=== PATIENT | female | born 1995 | race Caucasian/White ===

== ENCOUNTER 2018-12-10 01:21 | Inpatient (IN) | payer OTHER ==
[2018-12-10 01:56] LABS: Bilirubin Negative (Negative); Blood, Urine Negative (Negative); Clarity CLEAR (Clear); Glucose, Urine (Dipstick) Negative (Negative); Leukocyte Negative (Negative); Nitrite Negative (Negative); Protein, Urine (Dipstick) Negative (Neg-Trace); Specific Gravity, Urine 1.007 (1.002-1.036); Urobilinogen 0.2 mg/dL (0.2-1.0); pH, Urine 7.5 (5.0-9.0)
[2018-12-10] MEDS ORDERED: Acetaminophen 500 MG TAB ONE (02:53)
[2018-12-10 06:09] VITALS: BP 111/64; TEMP 98.7; BMI 21.9
[2018-12-10] MEDS ORDERED: Acetaminophen 500 MG TAB PO SCH (06:15)
[2018-12-10 06:17] LABS: Amnisure Test RUPTURE DETECTED (No Rupture)
[2018-12-10 06:18] LABS: Amnisure Internal Control QC ACCEPTABLE (ACCEPTABLE)
--- NOTE | 2018-12-10 06:39 | HP ---
PRIMARY OB: Ankur Shankar MD CHIEF COMPLAINT: Abdominal pain and pink discharge. HISTORY OF PRESENT ILLNESS: The patient is a 23-year-old, G1, P0 female with an intrauterine at 18 weeks and 5 days, who presented to the emergency room with abdominal pain and pink discharge. Since presentation, the abdominal pain seems to have dissipated on its own. During evaluation in the emergency room, the patient was noted to have a cervix that is thinning and funneling and patient was sent to Labor and Delivery for evaluation. Here in Labor and Delivery, the patient denies abdominal pain. She reports she has been having some pinkish discharge and has not noticed any change in her discharge. She denies any fever, fall, headache, chest pain, shortness of breath, nausea, vomiting, diarrhea, constipation, hip problems, knee problems, muscle weakness, any new rashes, urinary urgency. The patient denies any procedures her on her cervix such as a LEEP. PAST MEDICAL HISTORY: Negative. PAST SURGICAL HISTORY: Negative. ALLERGIES: SULFA DRUGS. MEDICATIONS: vitamins. OB LABS: She is rubella immune. HIV in the first trimester is nonreactive. Hepatitis B surface antigen is nonreactive in the first trimester. GC and chlamydia were negative in the first trimester. RPR and syphilis are nonreactive. Blood type is B positive. REVIEW OF SYSTEMS: Per HPI. Job ID: [id number]
[2018-12-10] MEDS ORDERED: Azithromycin 250 MG TAB PO SCH (06:45)
[2018-12-10] MEDS: Lactated Ringer's 1,000 ML IV SCH ×3 (07:04→21:37)
--- NOTE | 2018-12-10 07:11 | HP ---
PRIMARY PHOTOGRAPHIC SPOTTER: Dr. Ankur Shankar. CHIEF COMPLAINT: Abdominal pains and pink discharge. HISTORY OF PRESENT ILLNESS: The patient is a 23-year-old, G1, P0 female with an intrauterine at 18 weeks and 5 days, who presents to the emergency room this morning with complaints of abdominal pains, which started yesterday and pink discharge. On evaluation, the patient was noted to have funneling cervix by ultrasound and was transferred to and for evaluation. Here upon arrival, the patient reports that she is not having any more abdominal pains. She also reports that she has not noticed any change in her discharge or leaking of fluid. She confirmed this is her first and that she has not had any cervical procedures. The patient denies any recent illness, fever, fall, headache, chest pain, shortness of breath, nausea, vomiting, diarrhea, constipation, hip problems, knee problems, muscle weakness, new rashes, vaginal bleeding, urinary urgency. PAST MEDICAL HISTORY: Negative. PAST SURGICAL HISTORY: Negative. ALLERGIES: SULFA. MEDICATIONS: vitamins. SOCIAL HISTORY: Denies drug, alcohol tobacco use. OB LABS: She is rubella immune. RPR is nonreactive in the first trimester. Hepatitis B surface antigen is nonreactive in the first trimester. HIV is nonreactive in the first trimester. GC and chlamydia negative. Blood type is B positive. REVIEW OF SYSTEMS: Per HPI. PHYSICAL EXAMINATION: VITAL SIGNS: Blood pressure is 111/64, heart rate of 105, respiratory rate 16, saturating 98% on room air, temperature 98.2. GENERAL: She appears to be in no acute distress. She is alert, oriented, cooperative, and pleasant to interact with. HEAD: Normocephalic, atraumatic. LUNGS: Clear to auscultation bilaterally. HEART: Has regular rate and rhythm. ABDOMEN: Soft. She does have a little bit of tenderness in the lower abdomen on palpation. EXTREMITIES: Nontender, nonedematous. CERVIX: On her perineum, she has some white mucousy discharge at the introitus and on the perineum, she has a copious white watery discharge in her vaginal canal. Once removed, the patient is noted to have a visibly closed cervix. VPIII and AmniSure were collected at the time of evaluation. On digital exam, the patient has a cervix that has a dilated os, fingertip to 1 cm with clearly more dilated internal cervical os as it was not easily palpable. heart tones are in the 150s, report is not available yet, but the cervix definitely appears funneled with one view showing possible hourglassing of membranes. Urinalysis is negative for leukocyte esterase, nitrites, bacteria, blood or ketones. AmniSure reports rupture detected, VPIII is pending. She did have a VPIII in the ER, VPIII negative for Trichomonas, Gardnerella or Charity. CBC is also pending. ASSESSMENT AND PLAN: The patient is a 23-year-old female with an intrauterine at 18 weeks and 5 days, who appears to have rupture of membranes and incompetent cervix. Her uterine contractions have spontaneously resolved and may or may not have been in labor or earlier. Plan at this time is to start her on antibiotics of ampicillin and erythromycin and observe her for the next 24 hours. We may consider repeating her AmniSure test tomorrow to confirm rupture of membranes as she did not have any pulling with Valsalva and seems to have normal fluid levels on ultrasound. Her primary OB Dr. Miguel Shankar will be notified. Until we can either refute this test and confirm that she is not ruptured and consider a cervical cerclage in that scenario with the evidence of rupture of membranes, a cervical cerclage is not indicated at this time. Job ID: [id number]
[2018-12-10] MEDS: Ampicillin 2 GM in Sodium Chloride 0.9% 100 ML IVPB SCH ×3 (07:16→21:36)
--- NOTE | 2018-12-10 07:42 | ULT ---
PRELIMINARY REPORT: US After First Trimester, Transabdominal EXAM DATE/TIME: 12/10/2018 3:17 AM CLINICAL HISTORY: 23 years old, female; Pain and signs and symptoms; Lmp or gestational age (in weeks): 12w0d; Antepartum complications; Other: [place] discharge; complicated by abdominal or pelvic pain; Lower; Second trimester; ; Patient HX: Midline pelvic pain, pink discharge TECHNIQUE: Imaging protocol: Real-time transabdominal obstetrical ultrasound of the maternal pelvis and a second or third trimester with image documentation. COMPARISON: No relevant prior studies available. FINDINGS: Single living fetus in cephalic position. Anterior placenta. No placenta previa or other visible placental abnormality on the provided images. Amniotic fluid volume within normal limits. Cervical length was estimated with transabdominal scanning. The closed portion of the cervix appears shortened, measuring approximately 1.5 cm in length. There appears to be funneling of the internal os, diameter of fluid measures up to about 15 mm. As clinically needed, endovaginal scanning could more accurately evaluate the cervix, as clinically directed. BPD: , 4.0 cm. , 18 weeks, 1 day HC: , 14.5 cm. , 17 weeks, 5 days AC: , 12.3 cm. , 18 weeks, 0 days FL: , 2.7 cm. , 18 weeks, 1 day Composite age: 18 weeks, 0 days. Estimated weight: 219 grams. heart activity documented by the technologist, 158 bpm. Detailed/complete evaluation of anatomy was not performed at this time. If not already performed, subsequent complete evaluation of anatomy later in recommended, as clinically appropriate. No visible maternal adnexal abnormality. The urinary bladder was not completely evaluated/imaged at this time. IMPRESSION: 1. Single living fetus, composite age: 18 weeks, 0 days. 2. Significantly shortened cervical length, with funneling of the internal os, see above details. 3. Anterior placenta. 4. No visible placental abnormality on the provided images. 5. Normal amniotic fluid volume. 6. Other details discussed above. Thank you for allowing us to participate in the care of your patient. Dictated and Authenticated by: Steven Nolasco MD 12/10/2018 4:21 AM Central Time ([place] & [place]) FINAL REPORT: OBSTETRIC SONOGRAM: 12/10/2018 performed on emergency basis at 0319 hours. HISTORY: Second trimester gestation. Pelvic pain. FINDINGS: Agree with the preliminary report by Dr. Nolasco from [facility]. Single intrauterine gestation with estimated gestational age based on today's sonogram of 18 weeks 0 days. Shortening of the cervix with funneling of the internal os. Code QA Transcribed Date/Time: 12/10/2018 8:12 AM
[2018-12-10 07:58] LABS: Hemoglobin 11.8 g/dL (12.0-16.0); Mean Corpuscular HGB CONC 34.9 g/dL (32.0-36.0); Mean Corpuscular Hemoglobin 30.6 pg (27.0-31.0); Mean Corpuscular Volume 87.7 fL (78.0-98.0); Mean Platelet Volume 7.6 fL (7.4-10.4); Platelet Count 316 thou/uL (130-400); RBC Distribution Width 11.1 % (11.5-14.5); Red Blood Cell (RBC) Count 3.85 mill/uL (4.20-5.40); White Blood Cell (WBC) Count 19.6 thou/uL (4.8-10.8)
[2018-12-10 08:11] LABS: Band 8 % (5-11); Lymphocytes 7 % (21-51); MDiff Complete? YES; Monocytes 3 % (0-10); Neutrophil 82 % (42-75); Platelet Morphology Comment Appears Adequate; Polychromasia SLIGHT = 2-3 cells (100X) (0-2/hpf); Vacuoles SLIGHT
[2018-12-10] MEDS: Prenatal Vitamin 1 TAB PO SCH (08:59)
[2018-12-10] MEDS: Lactinex Tablet PO SCH (08:59)
[2018-12-10] MEDS ORDERED: metroNIDAZOLE 500 MG TAB PO SCH (09:00)
[2018-12-10] MEDS ORDERED: Erythromycin 250 MG in Sodium Chloride 0.9% 250 ML 250 ML IVPB SCH (12:00)
[2018-12-10] MEDS ORDERED: Butorphanol Tartrate 1 MG/ML VIAL SLOW IVP PRN ×2 (14:19→16:25)
--- NOTE | 2018-12-10 14:55 | PDOC.EVN ---
Event Note - Event Note Event Note: Called by Labor RN, big gush of fluid seen. Admitted this AM by Dr. Maki for Dr. Shankar. 23 yo WF G1 at 18 5/7 weeks with +amnisure and thinning cervix. Will continue ABX for latency, otherwise expectantly manage. Will deliver for chorioamnionitis, demise or spontaneous labor.
--- NOTE | 2018-12-10 16:31 | PDOC.EVN ---
Event Note - Event Note Event Note: CTSP for c/o "pressure". SSE shows vtx. SVE demonstrated cervix completely dilated. Expect delivery soon.
[2018-12-10] MEDS ORDERED: Misoprostol 100 MCG TAB ONE (17:20)
[2018-12-10] MEDS ORDERED: Misoprostol 200 MCG TAB ONE (17:20)
--- NOTE | 2018-12-10 18:07 | PDOC.OPDEL ---
OB Operative/Delivery Note Delivery Dr/Surgeon: Raad Pre-Delivery Diagnosis: active labor (Previable labor at 18 weeks gestation), other Procedure/Post Delivery Dx: spontaneous vaginal delivery Weeks gestation: 18 - Additional Findings/Plan Placenta delivered: spontaneous Repaired Obstetrical Laceration: none Estimated blood loss: 150 ml Post delivery plan: routine recovery
[2018-12-10] MEDS ORDERED: Acetaminophen 500 MG TAB PO PRN (20:08)
[2018-12-10] MEDS ORDERED: Ibuprofen 800 MG TAB PO PRN (20:08)
[2018-12-11] MEDS: Ampicillin 2 GM in Sodium Chloride 0.9% 100 ML IVPB SCH ×2 (03:00→09:26)
[2018-12-11 08:24] LABS: #Eosinphils 0.1 thou/uL (0.0-0.7); #Lymphocytes 1.9 thou/uL (1.20-3.40); #Neutrophils 11.1 thou/uL (1.40-6.50); %Basophils 0.1 % (0.0-1.0); %Eosinophils 0.5 % (0.0-10.0); %Lymphocytes 13.5 % (21.0-51.0); %Monocytes 6.9 % (0.0-10.0); Hemoglobin 9.8 g/dL (12.0-16.0); Mean Corpuscular HGB CONC 33.8 g/dL (32.0-36.0); Mean Corpuscular Hemoglobin 30.8 pg (27.0-31.0); Mean Platelet Volume 7.7 fL (7.4-10.4); Platelet Count 231 thou/uL (130-400); RBC Distribution Width 11.3 % (11.5-14.5); Red Blood Cell (RBC) Count 3.18 mill/uL (4.20-5.40); White Blood Cell (WBC) Count 14.1 thou/uL (4.8-10.8)
[2018-12-11] MEDS ORDERED: Azithromycin 250 MG TAB PO SCH (09:00)
[2018-12-11] MEDS: Prenatal Vitamin 1 TAB PO SCH (09:47)
[2018-12-11] MEDS: Lactinex Tablet PO SCH (09:48)
--- NOTE | 2018-12-11 11:38 | PDOC.PP ---
Post Progress Note Post Day #: 1 Subjective: Doing well. Feeling some back stiffness but otherwise pain better. Last cramping was last night. Bleeding normal. Grieving normally. PO intake tolerated: yes Flatus: yes Ambulation: yes Weight Weight 116 lb - Physical Examination General: NAD Cardiovascular: no m/r/g, RRR Respiratory: clear to auscultation bilaterally, non-labored breathing Abdominal: + bowel sounds, lochia, no distention, appropriately TTP Result Diagrams: 12/11/18 08:16 (1) demise Code(s): [id number] - Status: Acute (2) Grief associated with loss of fetus Code(s): F43.21 - ADJUSTMENT DISORDER WITH DEPRESSED MOOD Status: Acute - Assessment/Plan Doing well PP day #1. WBC decreasing. 19 --> 14 Ready for D/C home F/U in 2 weeks with me
== END 2018-12-11 12:25 | disposition home or self-care (01) | DRG 805 ==
LOC: ERS 01:21 → OBSVTOIN 03:45 → L&D 03:45
PROVIDERS: ADMIT Obstetrics & Gynecology; ATTEND Obstetrics & Gynecology
PROC: 10E0XZZ Delivery of Products of Conception, External Approach (ICD-10-PCS; principal; 2018-12-10)
DX: O60.12X0 Preterm labor second trimester with preterm delivery second trimester, not applicable or unspecified (principal); O34.32 Maternal care for cervical incompetence, second trimester; Z37.1 Single stillbirth; Z3A.18 18 weeks gestation of pregnancy; F43.21 Adjustment disorder with depressed mood; O99.344 Other mental disorders complicating childbirth; O02.1 Missed abortion
CPT/HCPCS: 36415; 76856; 81003; 84112; 85025; 87070; 87086; 87205; 87480; 87510; 87660; 93976; 96360; J0290; J0595; J3490

== ENCOUNTER 2019-05-28 10:43 | Observation (INO) | payer OTHER ==
[~2019-05-28 10:43] MED LIST: PROPOFOL 200 MG/20 ML VIAL ONE; Succinylcholine Chloride 20 MG/ML 10 ml SYRINGE FS ONE
[2019-05-28 11:04] VITALS: BMI 21.5
[2019-05-28 12:05] LABS: Amnisure Internal Control QC ACCEPTABLE (ACCEPTABLE); Amnisure Test No Membranes Rupture (No Rupture)
[2019-05-28 12:39] LABS: Bilirubin Negative (Negative); Blood, Urine Negative (Negative); Clarity Clear (Clear); Glucose, Urine (Dipstick) Normal (Negative); Leukocyte Negative Leu/uL (Negative); Nitrite Negative (Negative); Protein, Urine (Dipstick) Negative (Neg-Trace); RBC/HPF 0-3 HPF (0-3); Squamous Epithelial None Seen HPF (0-3); Urobilinogen Normal mg/dL (Less than 2); WBC/HPF 0-3 HPF (0-3)
[2019-05-28 12:40] LABS: Bacteria/HPF 1+ HPF (None Seen)
--- NOTE | 2019-05-28 14:42 | ULT ---
LIMITED OB ULTRASOUND TO EVALUATE THE CERVIX: INDICATION: Patient with a history of incompetent cervix. Assess cervical length. Currently approximately 19 we eks gestation according to the technologist. FINDINGS: There is dilatation of the internal os with funneling of amniotic fluid into the cervical canal. The fetus is in vertex position. The closed portion of the cervical canal is only measured at 1.[address] Maki made aware of these findings by the technologist. CODE CR POS: FAB
--- NOTE | 2019-05-28 16:27 | HP ---
PRIMARY OB: Ankur Shankar MD CHIEF COMPLAINT: Vaginal discharge. HISTORY OF PRESENT ILLNESS: The patient is a 23-year-old G2, P0 female with an intrauterine at 19 weeks and 4 days, presenting with a vaginal discharge x1 day. The patient has a history of delivery at 18 to 19 weeks last year. The belief at that time was that she had gone into labor due to infection. The patient has been placed on IM progesterone with earlier in this . The patient denies uterine contractions. She denies vaginal bleeding. She denies leakage of fluid. She denies urinary urgency or frequency. She denies any recent fever, cough, fall, chest pain, shortness of breath, nausea, vomiting, diarrhea, constipation, hip problems, knee problems, or muscle weakness. The patient describes as discharge is clear and gummy. PAST MEDICAL HISTORY: Negative. PAST SURGICAL HISTORY: Negative. ALLERGIES: SULFA DRUGS. MEDICATIONS: 1. vitamins. 2. IM progesterone shots. SOCIAL HISTORY: Denies drug, alcohol, or tobacco use. REVIEW OF SYSTEMS: Per HPI. PHYSICAL EXAMINATION: VITAL SIGNS: Blood pressure is 125/84, respiratory rate 17, temperature 99.4, pulse of 101, and saturating 100%. GENERAL: She appears to be in no acute distress. She is alert, oriented, cooperative, and pleasant to interact with. HEAD: Normocephalic and atraumatic. LUNGS: Clear to auscultation bilaterally. HEART: Has regular rate and rhythm. ABDOMEN: Gravid, soft, and nontender. EXTREMITIES: Nontender and nonedematous. : Vulva is without masses, lesions, or erythema. Vagina is moist with some discharge. Cervix is visibly closed with mucus present at the external os. On digital exam, cervix feels fairly long and medium soft with closed outer os. Heart tones are in the 140s. Bedside ultrasound shows a cervical length of 0.91 cm with funneling. VP3 is negative for bacterial vaginosis, Gardnerella, Trichomonas, or Charity. Urinalysis is negative for bacteria, blood, nitrites, leukocyte esterase, white blood cells. She does have 1+ bacteria for clean-catch. AmniSure test is negative. ASSESSMENT AND PLAN: The patient is a 23-year-old female with an intrauterine at 19 weeks and 4 days, coming with an incompetent cervix. The cervix is very dynamic with beaking anywhere from 1.7 to 0.9 cm. On digital exam, the cervical body itself feels to be pretty intact. We did discuss with the patient the option of having a cerclage placed. I have discussed these findings with Dr. Shankar. We will be placing a cerclage here this afternoon with Mersilene tape. The patient was given a fair lengthy discussion of the risks and benefits of a cervical cerclage, including the risk of rupture of membranes, labor, bleeding, infection, failure to extend the as desired. The patient has expressed understanding and desires to proceed. The patient has accepted and provided informed written consent for placement of cerclage. The patient will be admitted to the hospital until this procedure can be done and then observed overnight. Again, I have updated Dr. Shankar with our findings. We will be looking into changing her progesterone from IM weekly progesterone to vaginal progesterone daily as this formulation has been shown in some settings to be more effective. Pt will be discharged on indomethacin. Job ID: [id number] MTDD
[2019-05-28] MEDS ORDERED: Lidocaine 1% (PF) 30 ML VIAL ONE (18:11)
[2019-05-28] MEDS ORDERED: Fentanyl 100 MCG/2 ML VIAL ONE (18:33)
[2019-05-28] MEDS ORDERED: Silver Nitrate Application 1 EACH ONE ×2 (19:32→19:34)
[2019-05-28] MEDS ORDERED: Ondansetron PF 4 MG/2 ML Vial IVP PRN (20:15)
[2019-05-28] MEDS ORDERED: hydrALAZINE 20 MG/ML VIAL SLOW IVP PRN (20:15)
[2019-05-28] MEDS ORDERED: Ibuprofen 200 MG TAB PO PRN (20:19)
[2019-05-28] MEDS ORDERED: Acetaminophen 500 MG TAB PO PRN (20:19)
[2019-05-29] MEDS: Lactated Ringer's 1,000 ML IV SCH ×2 (00:42→04:10)
[2019-05-29 08:11] VITALS: BP 102/55; TEMP 98.3
[2019-05-29] MEDS ORDERED: FLU VACC QS2019-20(6MOS UP)/PF 60 MCG/0.5 ML SYRINGE IM ONE (11:15)
--- NOTE | 2019-05-29 11:35 | OP ---
DATE OF PROCEDURE: 05/28/2019 PREOPERATIVE DIAGNOSIS: Incompetent cervix. POSTOPERATIVE DIAGNOSIS: Incompetent cervix. PROCEDURE PERFORMED: Cervical cerclage with Mersilene tape. ANESTHESIA: General. COMPLICATIONS: None. COUNTS: Correct. ESTIMATED BLOOD LOSS: 50 mL. FINDINGS: Digitally closed cervix with a cervical length on ultrasound earlier in the day of 0.9 cm with extensive funneling. DESCRIPTION OF PROCEDURE: Ms. Jolene Landeros is a 23-year-old female who presented to the Labor and Delivery with vaginal discharge and was noted to have an incompetent cervix on ultrasound. After being counseled to the risks and benefits of cervical cerclage placement and updating Dr. Shankar, decision was made to proceed with a cervical cerclage. The patient was provided with a thorough discussion to the benefits and potential complications including the risk of premature rupture of membranes, labor, trauma to the cervix, bleeding, damage to surrounding organs. The patient desired to proceed. The patient was placed in dorsal lithotomy position in [facility] after being placed in general anesthesia without difficulty. She was prepared and draped in normal sterile fashion. Attention was placed vaginally. With the use of an operative speculum, the cervix was identified. Again, noted to be closed digitally externally. Of note, the vaginal cervical junction appeared to be very close to the external os of the cervix initially as the rugated vaginal mucosa appeared to be extending onto the cervix body. After inspection and careful manipulation of the cervix, the true reflection was noted to be about 2 cm from the edge. Posteriorly and laterally, this was not the case. The cervix was then grasped with a ring forceps and with a single needle, Mersilene tape. A pursestring suture technique was then used to circumferentially stitch the cervix at approximately 2 cm from the external edge as measured by measuring knife handle. The stitch was placed roughly at 1 to 3 o'clock, at 4 to 6 o'clock, at 7 to 10 o'clock, and at 11 to 1 o'clock. The suture was then drawn tight relatively speaking and then tied down with a subsequent air knot for better visualization. The cervix remained with normal color and otherwise healthy appearing. The procedure at that point was then completed. There was some initial bleeding with placement of the cerclage and attempt was made to inject the cervix with a small amount of lidocaine to facilitate postoperative pain comfort. The sites for made hemostatic with silver nitrate stick. The patient was taken out of lithotomy position, extubated, and sent to recovery in stable condition where she will be sent to the hospital floor for observation overnight to look for evidence of rupture of membranes or labor. Job ID: [id number]
--- NOTE | 2019-05-29 13:14 | DIS ---
DATE OF ADMISSION: 05/28/2019 DATE OF DISCHARGE: 05/29/2019 HOSPITAL COURSE: The patient is a 23-year-old female, who presented yesterday to Labor and Delivery with concerns of vaginal discharge. In her evaluation, the patient was noted to have incompetent cervix with a cervical length of 9 mm with extensive funneling. The patient was taken to the operating room yesterday after [place] and a cervical cerclage was placed. Please refer to the operative note for details. The patient was placed in observation overnight to evaluate for signs of labor or premature rupture of membranes. This morning, the patient reports that she is doing well. She has a little bit of cramping and has had some spotting discharge shortly after the surgery, but none this morning. The patient is comfortable being discharged home. She has been given precautions, asked to avoid intercourse or heavy exertional activities and to have light activity for the next couple of weeks. Her primary OB, Dr. Shankar, has been updated this morning and will be by to see her before she goes home. PHYSICAL EXAMINATION: VITAL SIGNS: This morning, blood pressure is 105/59, temperature 98.1, pulse of 81, respiratory rate of 16, and saturating 99% on room air. GENERAL: She appears to be in no acute distress. She is alert and oriented, cooperative and pleasant to interact with. ABDOMEN: Nontender. EXTREMITIES: Nontender. DISCHARGE INSTRUCTIONS: The patient is being discharged to home and will follow up next week with Dr. Shankar. The patient will be continued on progesterone supplementation. The patient is to seek medical attention should she experience uterine contractions, persistent and progressive leakage of fluid or bleeding. Job ID: [id number]
[2019-05-31 14:47] LABS: Chlamydia by PCR Not Detected (NotDetected); GC by PCR Not Detected (NotDetected)
== END 2019-05-29 09:15 | disposition home or self-care (01) ==
LOC: L&D/OP 10:43 → 3SE 21:15
PROVIDERS: ADMIT Obstetrics & Gynecology; ATTEND Obstetrics & Gynecology
PROC: 0UVC7ZZ Restriction of Cervix, Via Natural or Artificial Opening (ICD-10-PCS; principal; 2019-05-29)
DX: O34.32 Maternal care for cervical incompetence, second trimester (principal); Z3A.19 19 weeks gestation of pregnancy; Z88.0 Allergy status to penicillin
CPT/HCPCS: 76815; 81001; 84112; 87480; 87491; 87510; 87591; 87660; 96360; 96361; 99285; G0378; J2001; J2704; J3010

== ENCOUNTER 2019-06-03 17:31 | Day surgery (SDC) | payer OTHER ==
[2019-06-03 17:52] VITALS: BMI 21.5
[2019-06-03] MEDS ORDERED: hydrALAZINE 20 MG/ML VIAL SLOW IVP PRN (18:19)
--- NOTE | 2019-06-03 18:22 | PDOC.LDHP ---
Labor and Delivery H&P Chief complaint: other (Pelvic pressure at 20 weeks, cerclage in use) HPI: 23 yo with prior 18 weeks SAB, now at 20 weeks 3 days, patient of Dr Shankar, here for pelvic pressure. S/P cerclage last Thusday. She is also on weekely progesterone injections. States vag pressure but no VB, no LOF, some DSCH. Cervical length today was 1.5cm Review of Systems: complete ROS checked and as per HPI Current gestational age (weeks): 20 (3 days) Dating criteria: last menstrual period Grav: 2 Para: 0 OB History Details: Prior 18 week loss Current complications: none Abnormal US findings: Yes (HX CX length 1.5cm last week) Current medications: pre- vitamins Allergies/Adverse Reactions: Allergies Allergy/AdvReac Type Severity Reaction Status Date / Time Sulfa (Sulfonamide Allergy Verified 06/03/19 17:49 Antibiotics) Social history: none - Physical Exam Vital signs reviewed and normal: yes (121/72, 82 FHTs 150) General: NAD Heart: RRR Extremeties: no edema [place] contractions every: No CTX, FHT spot check 130s - Assessment Vag pressure at 20 weeks 3 days, cerclage in use.Sterile spec performed with no evidence BOQ per os, CX looks closed. No evidence VB or LOF. Slight white vag dsch - Plan Plan: observation in L&D (VP3 sent, reassurrance given at this point CX appears closed. She is on weekly progesterone injections. I have sent off a VP3)
[2019-06-03] MEDS ORDERED: Lactated Ringer's 1,000 ML IV SCH (19:15)
[2019-06-04] MEDS ORDERED: FLU VACC QS2019-20(6MOS UP)/PF 60 MCG/0.5 ML SYRINGE IM ONE (09:00)
== END 2019-06-03 20:45 | disposition home or self-care (01) ==
LOC: L&D/OP 17:31
PROVIDERS: ATTEND Family Medicine
DX: O99.89 Other specified diseases and conditions complicating pregnancy, childbirth and the puerperium (principal); R10.2 Pelvic and perineal pain; O34.32 Maternal care for cervical incompetence, second trimester; Z3A.20 20 weeks gestation of pregnancy; Z88.2 Allergy status to sulfonamides
CPT/HCPCS: 87480; 87510; 87660

== ENCOUNTER 2019-06-17 13:58 | Day surgery (SDC) | payer OTHER ==
[2019-06-17 14:44] VITALS: BMI 21.5
[2019-06-17] MEDS ORDERED: FLU VACC QS2019-20(6MOS UP)/PF 60 MCG/0.5 ML SYRINGE IM ONE (15:00)
[2019-06-17 15:35] LABS: Amnisure Test No Membranes Rupture (No Rupture)
[2019-06-17 15:36] LABS: Amnisure Internal Control QC ACCEPTABLE (ACCEPTABLE)
[2019-06-17] MEDS ORDERED: hydrALAZINE 20 MG/ML VIAL SLOW IVP PRN (15:39)
--- NOTE | 2019-06-17 20:40 | SS ---
DATE OF ADMISSION: 06/17/2019 DATE OF DISCHARGE: 06/17/2019 REGULAR PHYSICIAN: Ankur Shankar MD. EVALUATING PHYSICIAN: Simba Ahmadi MD CHIEF COMPLAINT: Watery vaginal discharge. HISTORY OF PRESENT ILLNESS: Ms. Landeros is a 23-year-old white G2, P0, with an estimated date of confinement of 10/18/2019, who presents complaining of a 1-day history of watery vaginal discharge. She had some mild cramping earlier in the day that is resolved. She denies vaginal bleeding. Her care has been with Dr. Shankar and has been complicated by a cerclage placed here approximately 3-4 weeks ago. PAST OBSTETRICAL HISTORY: Includes an 18-week loss secondary to incompetent cervix. PAST MEDICAL HISTORY: None. PAST SURGICAL HISTORY: Placement of cerclage as above. CURRENT MEDICATION: Includes vitamins and progesterone shot. ALLERGIES: SULFA. SOCIAL HISTORY: Denies tobacco, alcohol, or drug use. FAMILY HISTORY: Unremarkable. REVIEW OF SYSTEMS: Denies nausea, vomiting, fever, chills, or vaginal bleeding. PHYSICAL EXAMINATION: VITAL SIGNS: In triage, her vital signs are stable and she is afebrile. GENERAL: She is pleasant. She is in no acute distress. ABDOMEN: Soft, nontender, and gravid. : Speculum exam of the vagina shows a milky white discharge. The cervix is tightly closed with the cerclage easily visualized. heart tones are noted by Doppler. No significant uterine contractions are seen. AmniSure returns negative. SCRATCHER TENDER-III testing shows no evidence of vaginitis. ASSESSMENT: 1. 22 and 3/7th week intrauterine with cerclage in place. 2. No evidence of ruptured membranes or labor. PLAN: The patient will be dismissed to home. She was given precautions regarding her cerclage. She voiced understanding of her discharge instructions and was told to follow up as scheduled with Dr. Shankar. Job ID: [id number]
== END 2019-06-17 16:45 | disposition home health service (06) ==
LOC: L&D/OP 13:58
PROVIDERS: ATTEND Family Medicine
DX: O99.89 Other specified diseases and conditions complicating pregnancy, childbirth and the puerperium (principal); N89.8 Other specified noninflammatory disorders of vagina; Z3A.22 22 weeks gestation of pregnancy
CPT/HCPCS: 84112; 87480; 87510; 87660; 99284

== ENCOUNTER 2019-08-29 14:45 | Inpatient (IN) | payer BC, OTHER, SELFPAY ==
--- NOTE | 2019-08-29 15:09 | PDOC.FPROB ---
FMR OB H&P: HPI - History of Present Illness Chief Complaint: CTX Indentification: at 32.6 here for CTX History of Present Illness: 23 yo at 32.6 here for CTX starting this AM. Reports every 5-10min. Has hx of loss at 18 weeks. Cerclage placed at 19 weeks; scheduled to remove end of August. Also reports white, sticky discharge, but no fluid loss. No VB. Endorses FM. No dysuria. Has been receiving weekly [place] injections. Scheduled to receive IM steroids but pending insurance. No other concerns at this time. Primary Care Physician: Dr. Shankar FMR OB H&P: Current - Care : 2 Para: [id number] Gestational age: 32.6 - OB Labs Blood type: unknown RH: unknown Antibody Screen: unknown HIV: unknown RPR: unknown HepBsAg: unknown Quad screen: unknown Gonorrhea: unknown Chlamydia: unknown FMR OB H&P: History - Past Medical History PMH: Denies - OB History OB History: 1. 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 - Surgical History Sx History: None - Social History Social History: Denies TAD - Family History Family History: Non contributory FMR OB H&P: Medications - Current Home Medications: Medication Instructions Recorded Confirmed Type [id number]/Iron Fum/Folic/Docusate 1 tablet PO DAILY 06/03/19 08/29/19 History [ 19] Progesterone, Micronized 1 ml IM ROUTINE 06/03/19 08/29/19 History [Endometrin] Allergies/Adverse Reactions: Allergies Allergy/AdvReac Type Severity Reaction Status Date / Time Sulfa (Sulfonamide Allergy Verified 08/29/19 15:18 Antibiotics) FMR OB H&P: ROS - Review of Systems General: denies: fever/chills, weight/appetite/sleep changes Eyes: denies: eye pain, vision changes ENT: denies: nasal congestion, rhinorrhea, sore throat Cardiovascular: denies: chest pain, palpitation Respiratory: denies: congestion, shortness of breath Gastrointestinal: denies: abdominal pain, indigestion, diarrhea Genitourinary (Female): reports: vaginal discharge, contractions. denies: dysuria, hematuria, vaginal pain, vaginal bleeding, vaginal pressure Musculoskeletal: denies: pain, stiffness Neurologic: denies: numbness, syncope, seizures Integumentary: denies: rash, lesions Endocrine: denies: cold intolerance, heat intolerance FMR OB H&P: Physical Exam - Physical Exam General: NAD, awake, alert and oriented HEENT: normocephalic and atraumatic, PERRLA, MMM, conjunctiva clear, grossly normal vision Neck: FROM, trachea midline Heart: RRR, normal S1/S2 General: CTAB, no respiratory distress Abdomen: gravid, non-tender Musculoskeletal: normal gait and station, FROM in all four extremities Skin: good tugor, no jaundice Lymphatic: no unusual bruising or bleeding, no purpura Psychiatric: intact recent and remote memory, good judgement and insight - Pelvic Exam Vulva: normal hair distribution, normal rugae Deviation from normal: appears closed, thick clear discharge SVE: 3 FMR OB H&P: A/P - Problem List (1) with 32 completed weeks gestation Current Visit: Yes Status: Acute Code(s): Z3A.32 - 32 WEEKS GESTATION OF (2) Cervical cerclage suture present Current Visit: Yes Status: Acute Code(s): O34.30 - MATERNAL CARE FOR CERVICAL INCOMPETENCE, UNSP TRIMESTER (3) demise Current Visit: No Status: Acute Code(s): LUB3863 - Discussion: Date/Time: 08/29/19 1330 1. at 32 weeks, rule out labor -Amnisure sent -SVE: 3, cerclage in place -scheduled for IM steroids but insurance pending will give betamethasone x1 while here -will get U/S to assess cervical length and KATRINA 2. Vaginal discharge -VP3 sent 3. Hx of demise at 18 weeks -Cerclage in place -Steroids This H&P was discussed with Dr. Cleveland Wang who agree with the above documentation and plan. Addendum - Attending - Attending Attestation Date/Time: 08/29/192050 I personally evaluated the patient and discussed the management with Dr. Elias. I agree with the History, Examination, Assessment and Plan documented above.
[2019-08-29 15:23] VITALS: BMI 23.8
[2019-08-29] MEDS ORDERED: hydrALAZINE 20 MG/ML VIAL SLOW IVP PRN (15:36)
[2019-08-29] MEDS ORDERED: Lactated Ringer's 1,000 ML IV SCH (15:45)
[2019-08-29] MEDS ORDERED: Betamet Acet/Betamet Na Ph 30 MG/5 ML VIAL IM SCH (16:00)
[2019-08-29 16:20] LABS: Amnisure Test No Membranes Rupture (No Rupture)
[2019-08-29 16:21] LABS: Amnisure Internal Control QC ACCEPTABLE (ACCEPTABLE)
--- NOTE | 2019-08-29 17:07 | PDOC.EVN ---
Event Note - Event Note Event Note: Prelim report with translabial cervical length 1.5cm. (at time of cerclage placement transabd showed 1.7cm) Amnisure negative Pt still with some CTX, will give IVF SVE: /high Pending VP3 Discussed with Dr. Shankar-will monitor for few more hours
--- NOTE | 2019-08-29 17:07 | ULT ---
LIMITED OB ULTRASOUND: 08/29/19 HISTORY: labor. Evaluation for cervical length and position. The fetus is in a vertex presentation. heart rate is 144 beats per minute. The placenta is fund al in location. Amniotic fluid visually appears adequate and a fluid index is calculated at 12.5. The cervical canal is difficult to identify on these images. It appears that the length is approximately 1.5 cm. IMPRESSION: Difficulty in visualizing the cervical canal. I would estimate the canal to be a length of approximat ilan 1.5 cm. Other findings as noted above. POS: OFF
[2019-08-29] MEDS ORDERED: Ondansetron PF 4 MG/2 ML Vial IVP PRN (19:02)
[2019-08-29] MEDS ORDERED: Promethazine HCl 25 MG/ML VIAL IM PRN (19:02)
--- NOTE | 2019-08-29 19:41 | PDOC.EVN ---
Event Note - Event Note Event Note: CTX have spaced out q6min FHT: reactive & reassuring Discussed test results- VP3 negative, amnisure neg, no pooling on exam- cervical mucous likely hormonal changes Discussed keeping to observe due to CTX and overnight monitoring Received celestone x1 Continue monitoring Patient and family in agreement with plan
--- NOTE | 2019-08-30 02:18 | PDOC.EVN ---
Event Note - Event Note Event Note: Patient reporting increased CTX and vaginal pressure, strip showing q6min FHT reactive & reassuring AVSS SVE: , cerclage in place Patient with improved peripheral edema but now with labial edema but no pain. Will allow drain to gravity to extremities. Reports CTX have stopped since using bathroom. Monitor for now
--- NOTE | 2019-08-30 07:58 | PDOC.BPN ---
- Brief Progress Note Patient reporting some difficulties voiding, pressure. FHT: 1 isolated late deceleration that has since resolved. Otherwise strip was reactive. Conor: CTX q6min initially then spaced out to q8-10min, pt resting comfortably AVSS SVE: 3, cerclage in place, doesn't feel tight Patient with improved peripheral edema but now with labial edema but no pain. Will allow drain to gravity to extremities. Reports CTX have stopped since using bathroom. Monitor for now Dispo: Continue monitoring until second steroid dose. GBS.
[2019-08-30] MEDS ORDERED: FLU VACC QS2019-20(6MOS UP)/PF 60 MCG/0.5 ML SYRINGE IM ONE (09:00)
[2019-08-30] MEDS ORDERED: NIFEdipine 10 MG CAP PO SCH (09:15)
--- NOTE | 2019-08-30 09:15 | PDOC.EVN ---
Event Note - Event Note Event Note: Received report from Dr. Wang. 23 yo WF at 33 weeks with [address] in place here with UCs. USG on admit; vtx, CL= 1.5. FHTs stable. Now c/o stronger UCs, q 5-8 mins. 2nd dose of steroids due this PM. Will start Procardia 10 mg po and observe closely.
[2019-08-30] MEDS: NIFEdipine 10 MG CAP PO SCH (09:28)
[2019-08-30] MEDS ORDERED: Butorphanol Tartrate 1 MG/ML VIAL ONE (09:41)
[2019-08-30] MEDS ORDERED: Penicillin G Potassium 5 MILL.UNITS VIAL ONE (10:08)
[2019-08-30] MEDS ORDERED: NS / Oxytocin 40 units/1000ml 1,000 ML IV PRN ×2 (10:12→12:07)
[2019-08-30] MEDS ORDERED: Lidocaine 1% (PF) 30 ML VIAL SC PRN ×2 (10:12→12:07)
[2019-08-30] MEDS ORDERED: Butorphanol Tartrate 1 MG/ML VIAL SLOW IVP SCH (10:15)
[2019-08-30] MEDS ORDERED: Betamet Acet/Betamet Na Ph 30 MG/5 ML VIAL IM SCH (10:15)
[2019-08-30] MEDS ORDERED: Penicillin G Potassium 5 MILL.UNITS in Sodium Chloride 0.9% 100 ML IVPB SCH (10:15)
--- NOTE | 2019-08-30 10:47 | PDOC.EVN ---
Event Note - Event Note Event Note: CTSP for pt c/o vaginal pressure and pain. FHTs stable, UCs q 4-5 mins. SVE= 1/90/0 vtx very well applied to cervix. Cerclage is tight. Cerclage removed, exam after 3-4 cm. Will give 2nd dose of steroids now and start Pen G. Dr. Shankar notified.
[2019-08-30] MEDS ORDERED: Betamet Acet/Betamet Na Ph 30 MG/5 ML VIAL ONE ×2 (10:48→21:27)
[2019-08-30] MEDS ORDERED: Ibuprofen 800 MG TAB PO PRN (12:07)
[2019-08-30] MEDS ORDERED: Promethazine HCl 25 MG/ML VIAL IM PRN ×2 (12:07→19:43)
[2019-08-30] MEDS ORDERED: Ondansetron PF 4 MG/2 ML Vial IVP PRN ×2 (12:07→19:43)
[2019-08-30] MEDS ORDERED: Misoprostol 200 MCG TAB PR PRN (12:07)
[2019-08-30] MEDS ORDERED: Methylergonovine 0.2 MG/ML VIAL IM PRN (12:07)
[2019-08-30] MEDS ORDERED: Acetaminophen 500 MG TAB PO PRN (12:07)
[2019-08-30] MEDS ORDERED: hydrALAZINE 20 MG/ML VIAL SLOW IVP PRN (12:07)
[2019-08-30] MEDS ORDERED: HYDROcodone/Acetaminophen 5/325 mg Tablet PO PRN (12:07)
[2019-08-30] MEDS ORDERED: Carboprost 250 MCG/ML AMP IM PRN (12:07)
--- NOTE | 2019-08-30 12:13 | PDOC.LDPN ---
Labor & Delivery Progress Note - Subjective Subjective: painful contractions (This AM contractions picked back up again. Cerclage removed and exam after that was 3-0. CTX continue to be painful.) - Objective Vital signs reviewed and normal: yes Abnormal vital signs: Pulse 100-120, patient feeling well, no SOB, continue to monitor General: breathing through contractions Uterine fundus: non tender SVE: at 1045am FHT: category 1, variable decelerations (Intermittent variables, with contractions, almost appear early in nature), variability present [place] contractions every: 5 minutes - Assessment (1) labor in third trimester Code(s): O60.03 - LABOR WITHOUT DELIVERY, THIRD TRIMESTER Current Visit: Yes Status: Acute (2) with 32 completed weeks gestation Code(s): Z3A.32 - 32 WEEKS GESTATION OF Current Visit: Yes Status : Acute Plan: continue plan of care (Penicillin for status. NICU notified and Dr. Hayes has met with the patient. Anticipate delivery today. I am now assuming care from Dr. Ahmadi and Dr. Wang. Expectant management.)
[2019-08-30 12:52] LABS: Hemoglobin 11.9 g/dL (12.0-16.0); Mean Corpuscular HGB CONC 34.4 g/dL (32.0-36.0); Mean Corpuscular Hemoglobin 29.7 pg (27.0-31.0); Mean Corpuscular Volume 86.3 fL (78.0-98.0); Mean Platelet Volume 10.5 fL (7.4-10.4); Platelet Count 300 thou/uL (130-400); RBC Distribution Width 11.5 % (11.5-14.5); White Blood Cell (WBC) Count 17.8 thou/uL (4.8-10.8)
[2019-08-30 13:40] LABS: Hep B Surf Ag Non-Reactive S/CO (NonReactive); Syphilis Antibody Nonreactive (Nonreactive); Syphilis Antibody Index 0.06 S/CO (<1.00 Non-Reactive)
--- NOTE | 2019-08-30 13:51 | PDOC.APC ---
Antepartum Consult ANSLEY WALLER is a 23 year old female at [33 0/7] gestational weeks. I was asked by Dr Shankar/Dr. Ahmadi to speak with the patient regarding anticipated course for a baby born at 33-34 weeks. I spoke with the patient and father of the baby. I outlined that the timing and mode of delivery is a decision that will be made by the OB service. Once the patient is taken for delivery, the resuscitation team will be present. The initial focus will be on respiratory stabilization and may include minimal assistance, CPAP or intubation with surfactant administration. I discussed that the patient will need to be admitted to the NICU in an isolette due to temperature instability associated with prematurity. We will then obtain IV access ( peripheral will be first line, umbilical if unable to obtain peripheral) as babies are at risk for hypoglycemia. We discussed that babies born are at higher risk for feeding intolerance, infection and jaundice. I discussed that breastmilk is the best nutrition for babies and she is strongly encouraged to pump after delivery. Mother does plan to breastfeed and consented to the use of donor milk. I explained that the duration of hospital stay will be determined on the clinical course of the baby. I outlined the milestones that needed to be achieved to ensure safe discharge home. They had the opportunity to ask questions. I encouraged them to contact our service again if additional questions arise. I spent 20 minutes in consultation with the patient including face to face communication and coordination of care. Labs: Ante Labs Blood Type B POSITIVE 08/30/19 12:35
[2019-08-30] MEDS: Penicillin G 2.5 MILL.units 2.5 MILL.UNITS in Premix Bag 1 BAG IVPB SCH ×3 (14:03→22:37)
[2019-08-30] MEDS ORDERED: Bupivacaine 0.25% HCL 30 ML VIAL ONE (15:50)
[2019-08-30] MEDS ORDERED: Fentanyl 4 mcg/Bup 0.1% Cadd 100 ML ONE (18:54)
[2019-08-30] MEDS ORDERED: Acetaminophen 325 MG TAB PO PRN (19:43)
[2019-08-30] MEDS ORDERED: ePHEDrine/0.9% NaCl/PF SYRINGE 50 mg/10 ml SLOW IVP PRN (19:43)
[2019-08-30] MEDS ORDERED: Naloxone HCl 0.4 mg/ml Vial IVP PRN ×2 (19:43)
[2019-08-30] MEDS ORDERED: diphenhydrAMINE 50 MG/ML VIAL IVP PRN (19:43)
[2019-08-30] MEDS ORDERED: Lactated Ringer's 500 ML IV PRN (19:43)
[2019-08-30] MEDS ORDERED: Fentanyl 4 mcg/Bupivacaine 0.1% Cassette 100 ML EPIDURAL SCH (19:45)
[2019-08-30] MEDS ORDERED: Communication Order-Pharmacy FS SCH (19:45)
--- NOTE | 2019-08-31 00:33 | PDOC.EVN ---
Event Note - Event Note Event Note: Called to L&D for recurrent late decels. Have been going on intermittently thru the day but very consistently for the last 1-[address] Ahmadi also reviewed maxx strip and we discussed with the patient and her . We are all in agreement that C/S would be the safest course of delivery given the heart rate tracing. The patient and her agree and we will proceed with primary c/s for the indication of intolerance to labor, non-reassuring FHT.
[2019-08-31] MEDS ORDERED: CEFAZOLIN 2 GM in Premix Bag 1 BAG IVPB SCH (01:00)
[2019-08-31] MEDS ORDERED: Bicitra 30 ML UDCUP PO SCH (01:00)
[2019-08-31] MEDS ORDERED: MORPHINE 5 MG/10 ML PF VIAL ONE (01:18)
[2019-08-31] MEDS ORDERED: Lidocaine 2% MPF 10 ML AMP (For Epidural Use) ONE (01:19)
[2019-08-31] MEDS ORDERED: Dexamethasone 4 mg/ml Vial ONE (01:19)
[2019-08-31] MEDS ORDERED: PHENYLEPHRINE-NS 100 MCG/ML 10 ML SYRINGE ONE (01:19)
[2019-08-31] MEDS ORDERED: Oxytocin 10 UNITS/ML VIAL ONE (01:19)
[2019-08-31] MEDS ORDERED: Bupivacaine HCl 0.5%/Epinephrine 1:200,000/PF 30 ml Vial ONE (01:19)
[2019-08-31] MEDS ORDERED: Ondansetron PF 4 MG/2 ML Vial ONE (01:19)
[2019-08-31] MEDS ORDERED: Ketorolac Tromethamine 30 MG/ML VIAL ONE (01:19)
[2019-08-31] MEDS ORDERED: diphenhydrAMINE 50 MG/ML VIAL ONE (01:19)
[2019-08-31] MEDS ORDERED: Meperidine HCl/PF 25 MG/ML VIAL SLOW IVP PRN (01:31)
[2019-08-31] MEDS ORDERED: L&D-Morphine 4 MG/ML VIAL SLOW IVP PRN (01:31)
[2019-08-31] MEDS ORDERED: Ondansetron HCl/PF 4 MG/2 ML Vial IVP PRN (01:31)
[2019-08-31] MEDS ORDERED: HYDROmorphone 2 MG/ML VIAL SLOW IVP PRN (01:31)
[2019-08-31] MEDS ORDERED: Ondansetron PF 4 MG/2 ML Vial IVP PRN (01:32)
[2019-08-31] MEDS ORDERED: Promethazine HCl 25 MG SUPP PR PRN (01:32)
[2019-08-31] MEDS ORDERED: Naloxone HCl 0.4 mg/ml Vial IV PRN (01:32)
[2019-08-31] MEDS ORDERED: Ketorolac Tromethamine 30 MG/ML VIAL IVP PRN (01:32)
[2019-08-31] MEDS ORDERED: diphenhydrAMINE 50 MG/ML VIAL IVP PRN (01:32)
[2019-08-31] MEDS ORDERED: Naloxone HCl 0.4 mg/ml Vial IVP PRN ×2 (01:32)
[2019-08-31] MEDS ORDERED: Promethazine HCl 25 MG/ML VIAL IM PRN (01:32)
[2019-08-31] MEDS ORDERED: Ketorolac Tromethamine 30 MG/ML VIAL IVP SCH (01:45)
[2019-08-31] MEDS ORDERED: Communication Order-Pharmacy FS SCH (01:45)
[2019-08-31] MEDS ORDERED: Midazolam HCl 2 mg/2 ml Vial ONE ×2 (01:47→01:59)
[2019-08-31 01:57] LABS: Actual Bicarbonate (HCO3a) 26.2 mEq/L (22-28); Base Excess (BEa) -3.4 mEq/L (-2.0 to +3.0)
[2019-08-31 01:59] LABS: Actual Bicarbonate (HCO3v) 22 mEq/L (22-28); Base Excess -3.8 mEq/L (-2.0 to +3.0); pH (Cord, venous) 7.34 (7.32-7.43)
[2019-08-31] MEDS ORDERED: Meperidine HCl/PF 25 MG/ML VIAL ONE (02:04)
--- NOTE | 2019-08-31 02:55 | OP ---
DATE OF PROCEDURE: 08/31/2019 PREOPERATIVE DIAGNOSES: 1. Thirty-three week intrauterine . 2. Non-reassuring heart rate tracing. POSTOPERATIVE DIAGNOSES: 1. Thirty-three week intrauterine . 2. Non-reassuring heart rate tracing. PROCEDURE PERFORMED: Primary low segment transverse section via Pfannenstiel incision. FINDINGS: 1. Viable male infant, weight 4 pounds 2 ounces found in cephalic presentation with Apgars 9 and 9. 2. Two tight cord wraps around the abdomen, as well as the leg. 3. Heart-shaped uterus with prominent uterine horn, normal adnexa bilaterally. 4. Arterial cord pH of 7.21. 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 ESTIMATED BLOOD LOSS: 600 mL, QBL pending COMPLICATIONS: None. PROPHYLAXIS: Ancef 2 g prior to incision. TECHNIQUE IN DETAIL: After good spinal anesthesia was achieved, the patient was prepped and draped in the usual sterile fashion in the supine position with leftward tilt. A transverse incision was made 2 fingerbreadths above the symphysis pubis and the abdomen was entered in layers. The uterus was identified and a bladder flap was created in the peritoneum. A transverse incision was made over the lower uterine segment and was extended bluntly using the fingers. The fetus was delivered from the cephalic presentation and upon delivery, was noted to have two very tight wraps of cord around the baby's waist, as well as one leg. These were reduced. The cord was clamped and cut. The baby was taken to the waiting neonatology team. Cord gases and cord blood were then obtained. The placenta was manually removed and the inside of the uterus was curetted with a dry lap to remove all remaining placental fragments. Closure of the uterine incision was begun using a running locking suture of Monocryl. There was some bleeding after single-layer closure and interrupted [id number] were placed across the incision for complete hemostasis. Of note was the fact that the uterus was heart-shaped and had a prominent right uterine horn. The uterus was replaced in the abdominal cavity. The pelvic gutters were cleared of all clots and debris. The uterine incision was again reviewed and was noted to be hemostatic. The peritoneum was closed using a running suture of 2-0 Vicryl. The muscles were made dry using Bovie coagulation technique. The fascia was closed using 2 sutures of PDS, brought laterally to the midline in an alternating running locking fashion. The subcutaneous tissue was thoroughly irrigated and made dry using Bovie coagulation technique. The subcutaneous tissue was reapproximated using plain gut suture. The skin was closed with metal juan. Sponge, lap, and needle counts were correct. The patient tolerated the procedure well and was taken to the recovery room in good condition. Job ID: [id number] [facility]
[2019-08-31] MEDS ORDERED: Lanolin Ointment 7 GM TUBE TOP PRN (05:00)
[2019-08-31] MEDS ORDERED: hydrALAZINE 20 MG/ML VIAL SLOW IVP PRN (05:00)
[2019-08-31] MEDS ORDERED: Bisacodyl 10 MG SUPP PR PRN (05:00)
[2019-08-31] MEDS: Ibuprofen 800 MG TAB PO SCH ×3 (05:38→21:28)
[2019-08-31] MEDS: Penicillin G 2.5 MILL.units 2.5 MILL.UNITS in Premix Bag 1 BAG IVPB SCH (05:39)
[2019-08-31] MEDS: NIFEdipine 10 MG CAP PO SCH (05:39)
[2019-08-31] MEDS: Docusate Calcium (SURFAK) 240 MG CAP PO SCH ×2 (08:41→21:28)
[2019-09-01] MEDS: diphenhydrAMINE 25 MG CAP PO PRN ×2 (00:34→08:52)
[2019-09-01] MEDS: HYDROcodone/Acetaminophen 5/325 mg Tablet PO PRN ×3 (00:34→23:03)
[2019-09-01] MEDS: Simethicone Chewable 80 MG TAB PO PRN ×3 (00:35→20:58)
[2019-09-01 05:54] LABS: Hemoglobin 8.9 g/dL (12.0-16.0); Mean Corpuscular Hemoglobin 29.9 pg (27.0-31.0); Mean Corpuscular Volume 87.9 fL (78.0-98.0); Mean Platelet Volume 8.8 fL (7.4-10.4); Platelet Count 173 thou/uL (130-400); RBC Distribution Width 11.6 % (11.5-14.5); Red Blood Cell (RBC) Count 2.96 mill/uL (4.20-5.40); White Blood Cell (WBC) Count 15.5 thou/uL (4.8-10.8)
[2019-09-01] MEDS: Ibuprofen 800 MG TAB PO SCH ×3 (06:02→21:54)
[2019-09-01] MEDS: Docusate Calcium (SURFAK) 240 MG CAP PO SCH ×2 (08:42→20:42)
[2019-09-01] MEDS: Acetaminophen 325 MG TAB PO PRN ×2 (16:35→20:42)
--- NOTE | 2019-09-01 21:45 | PDOC.PP ---
Post Progress Note Post Day #: 1 Subjective: Doing well. Edema improving. Pain controlled. Pumping for baby in NICU. Had some kangaroo time with him. PO intake tolerated: yes Flatus: yes Ambulation: yes Vital Signs (12 hours) Temp Pulse Resp BP Pulse Ox 09/01/19 20:02 98.4 F 91 12 133/79 99 09/01/19 17:04 98.4 F 91 12 131/77 100 09/01/19 12:02 99.0 F 73 20 128/71 Weight Weight 130 lb - Physical Examination General: NAD Cardiovascular: no m/r/g, RRR Respiratory: clear to auscultation bilaterally, non-labored breathing Abdominal: + bowel sounds, lochia, no distention, appropriately TTP Extremities: negative homans (B) Skin: CS incision dry & intact Neurological: no gross focal deficits Result Diagrams: 09/01/19 05:33 Additional Labs: Post Labs Blood Type B POSITIVE 08/30/19 12:35 Hep Bs Antigen Non-Reactive S/CO (NonReactive) 08/30/19 12:35 (1) labor in third trimester Code(s): O60.03 - LABOR WITHOUT DELIVERY, THIRD TRIMESTER Status: Acute Qualifiers: labor delivery status: with delivery in third trimester Fetus number: single or unspecified fetus Qualified Code(s): O60.14X0 - labor third trimester with delivery third trimester, not applicable or unspecified (2) with 32 completed weeks gestation Code(s): Z3A.32 - 32 WEEKS GESTATION OF Status: Acute (3) delivery delivered Code(s): O82 - ENCOUNTER FOR DELIVERY WITHOUT INDICATION Status: Acute - Assessment/Plan Doing well Continue to ambulate Edema resolving Continue to pump for Will stay as long as able since baby in NICU. He is doing very well though.
[2019-09-02] MEDS: Acetaminophen 325 MG TAB PO PRN ×2 (03:46→15:24)
[2019-09-02] MEDS: Ibuprofen 800 MG TAB PO SCH ×3 (05:54→22:08)
[2019-09-02] MEDS: Docusate Calcium (SURFAK) 240 MG CAP PO SCH ×2 (07:22→22:08)
[2019-09-02] MEDS: HYDROcodone/Acetaminophen 5/325 mg Tablet PO PRN ×4 (07:22→23:49)
--- NOTE | 2019-09-02 15:16 | PDOC.PP ---
Post Progress Note Post Day #: 2 Subjective: Routine care. Pain controlled. Swelling improving. PO intake tolerated: yes Flatus: yes Ambulation: yes Vital Signs (12 hours) Temp Pulse Resp BP Pulse Ox 09/02/19 08:16 98.5 F 77 20 123/76 98 09/02/19 03:46 97.9 F 62 12 126/73 100 Weight Weight 130 lb - Physical Examination General: NAD Cardiovascular: no m/r/g, RRR Respiratory: clear to auscultation bilaterally, non-labored breathing Abdominal: + bowel sounds, lochia, no distention, appropriately TTP Extremities: negative homans (B) Skin: CS incision dry & intact Neurological: no gross focal deficits Psychiatric: A&Ox3 Result Diagrams: 09/01/19 05:33 Additional Labs: Post Labs Blood Type B POSITIVE 08/30/19 12:35 Hep Bs Antigen Non-Reactive S/CO (NonReactive) 08/30/19 12:35 (1) labor in third trimester Code(s): O60.03 - LABOR WITHOUT DELIVERY, THIRD TRIMESTER Status: Acute Qualifiers: labor delivery status: with delivery in third trimester Fetus number: single or unspecified fetus Qualified Code(s): O60.14X0 - labor third trimester with delivery third trimester, not applicable or unspecified (2) with 32 completed weeks gestation Code(s): Z3A.32 - 32 WEEKS GESTATION OF Status: Acute (3) delivery delivered Code(s): O82 - ENCOUNTER FOR DELIVERY WITHOUT INDICATION Status: Acute - Assessment/Plan Routine post-op care D/C tomorrow to B&B or [facility] Baby doing well in NICU
[2019-09-02] MEDS: Simethicone Chewable 80 MG TAB PO PRN (16:56)
[2019-09-02] MEDS ORDERED: Amlodipine 5 MG TAB PO SCH (22:00)
[2019-09-02] MEDS ORDERED: Labetalol 100 MG TAB PO SCH (23:45)
[2019-09-03] MEDS ORDERED: Sodium Chloride 0.9% 10 ML ONE (00:05)
--- NOTE | 2019-09-03 00:35 | PDOC.PP ---
Post Progress Note Post Day #: 3 Subjective: CAlled to room for persistent severe range bp for about 4hours. Pt denies headache, ruq tenderness, shortness of breath. Vital Signs (12 hours) Temp Pulse Resp BP BP Pulse Ox 09/02/19 23:48 68 181/88 H 09/02/19 22:45 171/87 H 09/02/19 22:12 69 173/81 H 09/02/19 22:10 69 173/81 H 09/02/19 20:25 99 09/02/19 20:06 98.7 F 62 16 168/92 H 99 09/02/19 16:19 98.6 F 81 16 127/69 100 Weight Weight 58.967 kg - Physical Examination General: NAD Cardiovascular: no m/r/g, RRR Respiratory: clear to auscultation bilaterally, non-labored breathing Deviation from normal: 3+dtr with 2 beats clonus Result Diagrams: 09/01/19 05:33 Additional Labs: Post Labs Blood Type B POSITIVE 08/30/19 12:35 Hep Bs Antigen Non-Reactive S/CO (NonReactive) 08/30/19 12:35 - Assessment/Plan PT is a 23yo pod #3 primary csection with severe bp x4hrs and clonus. i have ordered pih labs and iv magnesium for sz prophylaxis. Pt has been given norvasc and labetolol 200mg po by her managing provider. she does not have iv. We will get an iv in her and use hydralizine 10mg iv as needed.
[2019-09-03 00:55] LABS: #Basophils 0.1 thou/uL (0.0-0.2); #Eosinphils 0.2 thou/uL (0.0-0.7); #Lymphocytes 2.4 thou/uL (1.20-3.40); #Monocytes 0.9 thou/uL (0.11-0.59); #Neutrophils 11.5 thou/uL (1.40-6.50); %Basophils 0.8 % (0.0-1.0); %Eosinophils 1.4 % (0.0-10.0); %Lymphocytes 15.7 % (21.0-51.0); %Monocytes 6.2 % (0.0-10.0); Mean Corpuscular HGB CONC 34.5 g/dL (32.0-36.0); Mean Corpuscular Hemoglobin 30.5 pg (27.0-31.0); Mean Corpuscular Volume 88.2 fL (78.0-98.0); Mean Platelet Volume 8.5 fL (7.4-10.4); Platelet Count 203 thou/uL (130-400); RBC Distribution Width 11.7 % (11.5-14.5); Red Blood Cell (RBC) Count 2.96 mill/uL (4.20-5.40); White Blood Cell (WBC) Count 15.1 thou/uL (4.8-10.8)
[2019-09-03] MEDS ORDERED: hydrALAZINE 20 MG/ML VIAL SLOW IVP PRN (00:57)
[2019-09-03] MEDS ORDERED: Calcium Gluconate 4.6 MEQ in Sodium Chloride 0.9% 100 ML IVPB PRN (00:57)
[2019-09-03] MEDS ORDERED: Magnesium Sulfate 20 GM/WATER 500 ML BAG IVPB SCH (00:57)
[2019-09-03] MEDS: Magnesium Sulfate 20 GM in Dextrose 5% in Water 460 ML IV SCH ×3 (01:12→20:09)
[2019-09-03 01:30] LABS: ALT (SGPT) 17 U/L (8-55); AST (SGOT) 29 U/L (5-34); Albumin 2.8 g/dL (3.5-5.0); Alkaline Phosphatase 224 U/L (40-110); Anion Gap 7 mmol/L (10-20); BUN (Urea Nitrogen) 8 mg/dL (7.0-18.7); Bilirubin, Total 0.4 mg/dL (0.2-1.2); Calc. Creatinine Clearance 116 mL/min (70-130); Calcium 8.1 mg/dL (7.8-10.44); Carbon Dioxide 29 mmol/L (22-29); Chloride 106 mmol/L (98-107); Estimated GFR-MDRD Greater than 90; Globulin 2.7 g/dL (2.4-3.5); Glucose 95 mg/dL (70-105); Potassium 3.8 mmol/L (3.5-5.1); Protein, Total 5.5 g/dL (6.0-8.3); Sodium 138 mmol/L (136-145)
[2019-09-03 02:04] LABS: Creatinine, Urine Less than 20.00 mg/dL (47-110); Protein, Urine Random Quant Less than 10 mg/dL (1-14)
[2019-09-03] MEDS ORDERED: diphenhydrAMINE 50 MG/ML VIAL IVP SCH (02:45)
[2019-09-03] MEDS: HYDROcodone/Acetaminophen 5/325 mg Tablet PO PRN (06:05)
[2019-09-03] MEDS: Ibuprofen 800 MG TAB PO SCH (06:05)
[2019-09-03] MEDS: Lactated Ringer's 1,000 ML IV SCH (16:45)
[2019-09-04] MEDS: Ibuprofen 800 MG TAB PO SCH ×5 (00:54→21:40)
[2019-09-04] MEDS: Docusate Calcium (SURFAK) 240 MG CAP PO SCH ×3 (08:56→10:52)
[2019-09-04] MEDS: Lactated Ringer's 1,000 ML IV SCH ×2 (08:57→17:21)
--- NOTE | 2019-09-04 15:30 | PDOC.PP ---
Post Progress Note Subjective: Transferred to L&D last night for severe range BP and clonus. Started on magnesium. Diuresed well. Edema much better. No other sx reported. PO intake tolerated: yes Flatus: yes Ambulation: yes Vital Signs (12 hours) Temp Pulse Resp BP BP 09/04/19 15:01 61 162/98 H 09/04/19 12:00 98.5 F 61 18 113/62 09/04/19 08:00 98.4 F 76 18 136/88 Weight Weight 130 lb - Physical Examination General: NAD Cardiovascular: no m/r/g, RRR Respiratory: clear to auscultation bilaterally, non-labored breathing Abdominal: + bowel sounds Extremities: negative homans (B) Skin: CS incision dry & intact Neurological: no gross focal deficits Result Diagrams: 09/03/19 00:43 09/03/19 00:43 Additional Labs: Post Labs Blood Type B POSITIVE 08/30/19 12:35 Hep Bs Antigen Non-Reactive S/CO (NonReactive) 08/30/19 12:35 (1) labor in third trimester Code(s): O60.03 - LABOR WITHOUT DELIVERY, THIRD TRIMESTER Status: Acute Qualifiers: labor delivery status: with delivery in third trimester Fetus number: single or unspecified fetus Qualified Code(s): O60.14X0 - labor third trimester with delivery third trimester, not applicable or unspecified (2) with 32 completed weeks gestation Code(s): Z3A.32 - 32 WEEKS GESTATION OF Status: Acute (3) delivery delivered Code(s): O82 - ENCOUNTER FOR DELIVERY WITHOUT INDICATION Status: Acute (4) Pre-eclampsia Code(s): O14.90 - UNSPECIFIED PRE-ECLAMPSIA, UNSPECIFIED TRIMESTER Status: Acute - Assessment/Plan COntinue magnseium until later tonight. BP much better since fluid moving. Feeling well despite the BP Obs on LICU for now.
--- NOTE | 2019-09-04 15:35 | PDOC.PP ---
Post Progress Note Post Day #: 5 Subjective: Feeling well off magnesium. BP has been well controlled for the most part, one high reading this AM. NO BP meds since night before last. PO intake tolerated: yes Flatus: yes Ambulation: yes Vital Signs (12 hours) Temp Pulse Resp BP BP 09/04/19 15:01 61 162/98 H 09/04/19 12:00 98.5 F 61 18 113/62 09/04/19 08:00 98.4 F 76 18 136/88 Weight Weight 130 lb - Physical Examination General: NAD Cardiovascular: no m/r/g, RRR Respiratory: clear to auscultation bilaterally, non-labored breathing Abdominal: + bowel sounds, lochia, no distention, appropriately TTP Result Diagrams: 09/03/19 00:43 09/03/19 00:43 Additional Labs: Post Labs Blood Type B POSITIVE 08/30/19 12:35 Hep Bs Antigen Non-Reactive S/CO (NonReactive) 08/30/19 12:35 (1) labor in third trimester Code(s): O60.03 - LABOR WITHOUT DELIVERY, THIRD TRIMESTER Status: Acute Qualifiers: labor delivery status: with delivery in third trimester Fetus number: single or unspecified fetus Qualified Code(s): O60.14X0 - labor third trimester with delivery third trimester, not applicable or unspecified (2) with 32 completed weeks gestation Code(s): Z3A.32 - 32 WEEKS GESTATION OF Status: Acute (3) delivery delivered Code(s): O82 - ENCOUNTER FOR DELIVERY WITHOUT INDICATION Status: Acute (4) Pre-eclampsia Code(s): O14.90 - UNSPECIFIED PRE-ECLAMPSIA, UNSPECIFIED TRIMESTER Status: Acute - Assessment/Plan One severe range BP this AM Monitor for now May need oral BP med
[2019-09-04] MEDS: HYDROcodone/Acetaminophen 5/325 mg Tablet PO PRN ×2 (16:55→23:00)
[2019-09-05] MEDS: Docusate Calcium (SURFAK) 240 MG CAP PO SCH ×2 (00:38→09:47)
[2019-09-05] MEDS: Lactated Ringer's 1,000 ML IV SCH ×2 (00:38→13:30)
[2019-09-05] MEDS: HYDROcodone/Acetaminophen 5/325 mg Tablet PO PRN ×3 (03:47→18:38)
[2019-09-05] MEDS: Ibuprofen 800 MG TAB PO SCH ×2 (06:16→13:27)
--- NOTE | 2019-09-05 11:57 | PDOC.PP ---
Post Progress Note Post Day #: 6 Subjective: Doing well. BP controlled with toprol XL 50mg. Home rx written and in chart. Pain controlled. going well. PO intake tolerated: yes Flatus: yes Ambulation: yes Vital Signs (12 hours) Temp Pulse Resp BP Pulse Ox 09/05/19 11:48 98.4 F 79 13 149/90 H 100 09/05/19 08:13 98.5 F 70 16 151/81 H 100 09/05/19 03:43 98.9 F 79 18 158/88 H 99 Weight Weight 130 lb - Physical Examination General: NAD Cardiovascular: no m/r/g, RRR Respiratory: clear to auscultation bilaterally, non-labored breathing Abdominal: + bowel sounds, lochia, no distention, appropriately TTP Extremities: negative homans (B) Result Diagrams: 09/03/19 00:43 09/03/19 00:43 Additional Labs: Post Labs Blood Type B POSITIVE 08/30/19 12:35 Hep Bs Antigen Non-Reactive S/CO (NonReactive) 08/30/19 12:35 (1) labor in third trimester Code(s): O60.03 - LABOR WITHOUT DELIVERY, THIRD TRIMESTER Status: Acute Qualifiers: labor delivery status: with delivery in third trimester Fetus number: single or unspecified fetus Qualified Code(s): O60.14X0 - labor third trimester with delivery third trimester, not applicable or unspecified (2) with 32 completed weeks gestation Code(s): Z3A.32 - 32 WEEKS GESTATION OF Status: Acute (3) delivery delivered Code(s): O82 - ENCOUNTER FOR DELIVERY WITHOUT INDICATION Status: Acute (4) Pre-eclampsia Code(s): O14.90 - UNSPECIFIED PRE-ECLAMPSIA, UNSPECIFIED TRIMESTER Status: Acute - Assessment/Plan BP stabilized. D/C to B&B. Baby will be in NICU for about a week or two more to feed and grow. Home meds written D/C juan and place steristrips.
[2019-09-05 15:40] VITALS: BP 143/81; TEMP 98.3
== END 2019-09-05 18:58 | disposition home or self-care (01) | DRG 788 ==
LOC: L&D/OP 14:45 → L&D 19:44 → OBSVTOIN 19:44 → 3SE 08-31 05:15 → L&D 09-03 02:03 → 3SE 09-04 23:51
PROVIDERS: ADMIT Family Medicine; ATTEND Family Medicine
PROC: 10D00Z1 Extraction of Products of Conception, Low, Open Approach (ICD-10-PCS; principal; 2019-08-31)
DX: O60.14X0 Preterm labor third trimester with preterm delivery third trimester, not applicable or unspecified (principal); O14.94 Unspecified pre-eclampsia, complicating childbirth; O76 Abnormality in fetal heart rate and rhythm complicating labor and delivery; Z3A.32 32 weeks gestation of pregnancy; Z37.0 Single live birth
CPT/HCPCS: 36415; 51702; 76815; 80053; 82570; 82805; 83735; 84112; 84156; 85025; 85027; 86780; 86850; 86900; 86901; 87077; 87081; 87340; 87480; 87510; 87660; 88307; 99285; J0360; J0595; J0670; J0690; J0702; J1100; J1200; J1885; J2001; J2175; J2250; J2274; J2405; J2540; J2590; J3475; J3490; J7070; Q0163; S0020

== ENCOUNTER 2020-06-12 23:46 | Emergency (ER) | payer BC, OTHER ==
[2020-06-13 00:11] LABS: Bilirubin Negative (Negative); Blood, Urine Negative (Negative); Clarity Clear (Clear); Glucose, Urine (Dipstick) Normal (Negative); Ketone, Urine Negative (Negative); Leukocyte Negative Leu/uL (Negative); Nitrite Negative (Negative); Protein, Urine (Dipstick) Negative (Neg-Trace); Specific Gravity, Urine 1.002 (1.002-1.036); Urobilinogen Normal mg/dL (Less than 2)
[2020-06-13 00:28] LABS: #Basophils 0.1 thou/uL (0.0-0.2); #Eosinphils 0.1 thou/uL (0.0-0.7); #Lymphocytes 3.1 thou/uL (1.20-3.40); #Monocytes 0.7 thou/uL (0.11-0.59); #Neutrophils 3.7 thou/uL (1.40-6.50); %Basophils 1.3 % (0.0-1.0); %Eosinophils 1.5 % (0.0-10.0); %Lymphocytes 40.1 % (21.0-51.0); %Monocytes 9.5 % (0.0-10.0); %Neutrophils 47.7 % (42.0-75.0); Hemoglobin 13.6 g/dL (12.0-16.0); Mean Corpuscular HGB CONC 36.4 g/dL (32.0-36.0); Mean Corpuscular Hemoglobin 31.6 pg (27.0-31.0); Mean Platelet Volume 7.8 fL (7.4-10.4); Platelet Count 317 thou/uL (130-400); Red Blood Cell (RBC) Count 4.29 mill/uL (4.20-5.40); White Blood Cell (WBC) Count 7.7 thou/uL (4.8-10.8)
[2020-06-13 00:46] LABS: Pregnancy Test - Urine (BHCG) Negative (Negative); Pregu Control Background? CLEAR/WHITE (CLR/WHITE); Pregu Control Bar Appear? YES (CONTROL BAR); Specific Gravity 1.002 (1.002-1.036)
[2020-06-13 00:58] LABS: ALT (SGPT) 17 U/L (8-55); AST (SGOT) 18 U/L (5-34); Albumin 4.3 g/dL (3.5-5.0); Alkaline Phosphatase 72 U/L (40-110); Anion Gap 13 mmol/L (10-20); BUN (Urea Nitrogen) 9 mg/dL (7.0-18.7); Bilirubin, Total 1.1 mg/dL (0.2-1.2); Calc. Creatinine Clearance 0 mL/min (70-130); Calcium 9.4 mg/dL (7.8-10.44); Carbon Dioxide 27 mmol/L (22-29); Chloride 100 mmol/L (98-107); Estimated GFR-MDRD Greater than 90; Glucose 94 mg/dL (70-105); Potassium 3.4 mmol/L (3.5-5.1); Protein, Total 7.3 g/dL (6.0-8.3); Sodium 137 mmol/L (136-145)
== END 2020-06-13 01:18 | disposition home or self-care (01) ==
LOC: ERS 23:46
DX: F43.0 Acute stress reaction (principal); I10 Essential (primary) hypertension; Z79.899 Other long term (current) drug therapy
CPT/HCPCS: 36415; 36416; 80053; 81003; 81025; 85025; 93005; 99283

== ENCOUNTER 2025-08-20 00:11 | Emergency (ER) | payer OTHER, SELFPAY ==
[2025-08-20 02:47] LABS: #Basophils Less than 0.03 10x3/uL (0.0-0.2); #Eosinophils 0.05 10x3/uL (0.0-0.7); #Monocytes 0.50 10x3/uL (0.11-0.59); #Neutrophils 3.16 10x3/uL (1.40-6.50); %Basophils 0.2 % (0.0-1.0); %Eosinophils 0.8 % (0.0-10.0); %Lymphocytes 37.3 % (21.0-51.0); %Monocytes 8.4 % (0.0-10.0); %Neutrophils 53.1 % (42.0-75.0); Hematocrit 36.6 % (36.0-47.0); Hemoglobin 12.6 g/dL (12.0-16.0); Mean Corpuscular Hemoglobin 28.9 pg (27.0-31.0); Mean Corpuscular Volume 83.9 fL (78.0-98.0); Platelet Count 286 10x3/uL (130-400); Red Blood Cell (RBC) Count 4.36 mill/uL (4.20-5.40); White Blood Cell (WBC) Count 5.95 10x3/uL (4.8-10.8)
[2025-08-20 03:07] LABS: ALT (SGPT) 14 U/L (Less than 34); AST (SGOT) 19 U/L (11-34); Albumin 4.0 g/dL (3.1-4.5); Alkaline Phosphatase 49 U/L (40-110); Anion Gap 15 mmol/L (10-20); BUN (Urea Nitrogen) 10 mg/dL (7.0-18.7); Bilirubin, Total 0.8 mg/dL (0.3-1.2); Calc. Creatinine Clearance 0 mL/min (70-130); Calcium 8.9 mg/dL (7.8-10.44); Carbon Dioxide 25 mmol/L (22-29); Chloride 105 mmol/L (98-107); Globulin 3.1 g/dL (2.4-3.5); Glucose 91 mg/dL (70-105); Potassium 4.0 mmol/L (3.5-5.1); Sodium 141 mmol/L (136-145)
[2025-08-20 03:27] LABS: Free T4 (Free Thyroxine) 1.31 ng/dL (0.70-1.48)
== END 2025-08-20 04:54 | disposition home or self-care (01) ==
LOC: ERS 00:11
DX: G47.00 Insomnia, unspecified (principal); I10 Essential (primary) hypertension
CPT/HCPCS: 80053; 84439; 84443; 85025; 99283

== ENCOUNTER 2025-08-21 02:11 | Emergency (ER) | payer SELFPAY ==
[2025-08-21 02:36] LABS: #Basophils Less than 0.03 10x3/uL (0.0-0.2); #Eosinophils Less than 0.03 10x3/uL (0.0-0.7); #Monocytes 0.43 10x3/uL (0.11-0.59); #Neutrophils 2.86 10x3/uL (1.40-6.50); %Basophils 0.2 % (0.0-1.0); %Eosinophils 0.4 % (0.0-10.0); %Lymphocytes 31.1 % (21.0-51.0); %Monocytes 8.9 % (0.0-10.0); %Neutrophils 59.2 % (42.0-75.0); Hematocrit 34.5 % (36.0-47.0); Hemoglobin 12.0 g/dL (12.0-16.0); Mean Corpuscular Hemoglobin 28.9 pg (27.0-31.0); Mean Corpuscular Volume 83.1 fL (78.0-98.0); Platelet Count 289 10x3/uL (130-400); Red Blood Cell (RBC) Count 4.15 mill/uL (4.20-5.40); White Blood Cell (WBC) Count 4.83 10x3/uL (4.8-10.8)
[2025-08-21 02:52] LABS: ALT (SGPT) 11 U/L (Less than 34); AST (SGOT) 22 U/L (11-34); Albumin 4.0 g/dL (3.1-4.5); Alkaline Phosphatase 49 U/L (40-110); Anion Gap 18 mmol/L (10-20); BUN (Urea Nitrogen) 10 mg/dL (7.0-18.7); Bilirubin, Total 0.9 mg/dL (0.3-1.2); Calc. Creatinine Clearance 0 mL/min (70-130); Calcium 8.8 mg/dL (7.8-10.44); Carbon Dioxide 23 mmol/L (22-29); Chloride 102 mmol/L (98-107); Globulin 2.9 g/dL (2.4-3.5); Glucose 95 mg/dL (70-105); Potassium 3.5 mmol/L (3.5-5.1); Sodium 139 mmol/L (136-145)
[2025-08-21] MEDS ORDERED: Droperidol 5 MG/2 ML VIAL ONE (03:13)
[2025-08-21] MEDS ORDERED: Iopamidol-370 76% 500 ML MDV (1 ML CHARGE) ONE (08:52)
== END 2025-08-21 06:38 | disposition home or self-care (01) ==
LOC: ERS 02:11
DX: R07.89 Other chest pain (principal); R51.9 Headache, unspecified; R00.0 Tachycardia, unspecified; G47.00 Insomnia, unspecified; Z79.899 Other long term (current) drug therapy
CPT/HCPCS: 70450; 71045; 71275; 80053; 84484; 85025; 85379; 87428; 93005; J1790